=== PATIENT | female | born 2005 | race Two or more races ===

== ENCOUNTER → 2024-12-09 | Outpatient (CLI) | payer OTHER ==
[2024-12-10 08:07] LABS: Mumps IgG Antibody 81.8 AU/mL (Immune >10.9); Rubeola IgG Antibody <13.5 AU/mL (Immune >16.4); Varicella Zoster IgG Antibody Reactive (Non Reactive)
== END | disposition home or self-care (01) ==
LOC: LAB 11:24
PROVIDERS: ATTEND Nurse Practitioner
DX: Z01.84 Encounter for antibody response examination (principal)
CPT/HCPCS: 36415; 86706; 86735; 86762; 86765; 86787

== ENCOUNTER 2025-01-27 12:45 | Outpatient (CLI) | payer OTHER | END 2025-01-27 17:00 | disposition home or self-care (01) | LOC: LAB 12:45 | PROVIDERS: ATTEND Registered Nurse | DX: Z01.84 Encounter for antibody response examination (principal) | CPT/HCPCS: 86735; 86762; 86765; 86787 ==